=== PATIENT | female | born 1975 | race American Indian/Alaskan Native ===

== ENCOUNTER 2016-11-02 15:24 | Outpatient (CLI) | payer BC ==
--- NOTE | 2016-11-02 16:33 | Ultrasound Report ---
Bilateral mammogram and right breast ultrasound: The patient presents with a palpable lump in her right breast for approximately 6 or more months and mild associated right breast pain. A marker was placed over the area of concern in the superior right breast. Routine views are obtained. The patient has extremely dense breast pattern which is diffusely distributed bilaterally. There is no clearly identifiable mass related to the marker or elsewhere in either breast. There is no architectural distortion and no calcifications. Ultrasound in the upper breast over the area of concern demonstrates a fibrocystic appearing breast pattern. There is focal fibrocystic appearing tissue related to the palpable area which is approximately in the 1:00 location. There is a small echolucent circumscribed mass adjacent to this area measuring 8.3 mm. There is enhancement of distal echoes. CAD used. Impression: There are no suspicious mammographic or ultrasound findings. The palpable finding appears to be related to her fibrocystic appearing tissue. The adjacent small cyst is not palpable. BI-RADS CATEGORY: 2 = Benign ACR BI-RADS MAMMOGRAPHIC CODES: 0 = Needs additional imaging evaluation; 1 = Negative; 2 = Benign; 3 = Probably benign; 4 = Suspicious; 5 = Malignant; 6 = Known biopsy-proven malignancy COMMENT: 1. Dense breast tissue, i.e., adenosis, fibrocystic changes, etc., may obscure an underlying neoplasm. 2. Approximately 10% of cancers are not detected with mammography. 3. A negative mammography report should not delay biopsy if a clinically suspicious mass is present. A Recommendation: Clinical followup. Annual mammogram. Any additional evaluation at this time should be based on clinical concern. The patient has been advised to notify you if there is any palpable change.
== END 2016-11-02 15:25 | disposition home or self-care (01) ==
LOC: SPVWC 15:24
PROVIDERS: ATTEND Obstetrics & Gynecology
DX: N60.01 Solitary cyst of right breast (principal); N63 Unspecified lump in breast; N64.4 Mastodynia
CPT/HCPCS: 76642; G0204; 77066